=== PATIENT | female | born 1980 | race Caucasian/White ===

== ENCOUNTER 2024-06-14 22:14 | Day surgery (SDC) | payer OTHER, SELFPAY ==
[2024-06-14 17:50] VITALS: BP 146/83
[2024-06-14 18:15] LABS: % Basophils 0.3 % (0-2); % Eosinophils 1.2 % (0-6); % Immature Granulocytes 0.2 % (0-0.5); % Lymphocytes 19.6 % (20.5-51.1); % Monocytes 5.3 % (1.7-9.3); % Neutrophils 73.4 % (42.2-75.2); Absolute Eosinophils 0.1 10^3/uL (0-0.7); Absolute Lymphocytes 2.4 10^3/uL (1.2-3.4); Absolute Monocytes 0.6 10^3/uL (0.1-0.6); Absolute Neutrophils 8.8 10^3/uL (1.4-6.5); Hematocrit 36.7 % (37.0-47.0); Hemoglobin 12.8 g/dL (12.0-16.0); Mean Corp Hgb Conc. 34.9 g/dL (33.0-37.0); Mean Corpuscular Hgb 31.2 pg (27.0-31.0); Mean Corpuscular Volume 89.5 fL (81.0-99.0); Mean Platelet Volume 9.5 fL (7.4-10.4); Nucleated Red Blood Cells % 0 %; Platelet Count 372 10^3/uL (130-400); Red Cell Dist. Width 13.2 % (11.5-14.5)
[2024-06-14 18:19] LABS: Urine Albumin Negative (Neg - Trace); Urine Bilirubin Negative (Negative); Urine Character Clear (Clear); Urine Color Yellow; Urine Glucose Negative (Negative); Urine Ketone Negative (Negative); Urine Leukocyte Trace (Negative); Urine Nitrite Negative (Negative); Urine Occult Blood Trace (Negative); Urine Specific Gravity 1.025 (<1.030); Urine Urobilinogen Negative (Neg - 1+)
[2024-06-14 18:32] LABS: Urine Squamous Cell >30 /LPF (Few)
[2024-06-14 18:33] LABS: Urine Bacteria Few (Negative); Urine Red Blood Cell 0-2 /HPF (0-2); Urine White Cell 0-2 /HPF (0-5)
[2024-06-14 18:37] LABS: ALT (SGPT) 24 U/L (0-35); AST (SGOT) 29 U/L (14-36); Albumin 4.4 g/dl (3.5-5.0); Alkaline Phosphatase 71 U/L (38-126); Blood Urea Nitrogen 12 mg/dl (7-17); Calcium 8.9 mg/dl (8.4-10.2); Carbon Dioxide 20 mmol/L (22-30); Chloride 102 mmol/L (98-107); Glucose 96 mg/dl (70-99); Potassium 4.1 mmol/L (3.5-5.1); Sodium 138 mmol/L (135-145); Total Bilirubin 0.4 mg/dl (0.2-1.3); Total Protein 7.4 g/dl (6.3-8.2); eGFR > 60.00
[2024-06-14 18:38] LABS: Lipase 79 U/L (23-300)
--- NOTE | 2024-06-14 18:52 | ED.GENMED ---
History of Present Illness
General
Chief Complaint: Abdominal Pain
Source: patient
Exam Limitations: none
Time Seen by Provider: 06/14/24 18:43
History of Present Illness
History of Present Illness:
This is a 44 year old female that comes in with c/o RLQ pain. States that she started with pain around lunch time. States that the pain seems to travel up to under her ribs on the right side. States that she eat lunch but did not feel any better.
Then at 2pm she drank a sprite thinking that if she belched this would help. States that she felt no better. States that when she got home she also took a baby aspirin. States that she is nauseated and did vomit. Denies any fever, chills, chest
pain, SOB, diarrhea, headache, dizziness, urinary burning.
Past History
Past History
ED Past Medical History: None; Negative Asthma, HTN, Hypercholesterolemia or NIDDM
ED Past Surgical History: (X 1)
Social History
Tobacco: Non-smoker
Alcohol: Occasional
Personal:
Living: with family
Employment: Employed
Review of Systems
Review of Systems
All Other Systems: ROS reviewed and negative except as documented in HPI and ROS
Constitutional: Reports no symptoms; Denies fever or chills
EENT: Reports no symptoms
Respiratory: Reports no symptoms; Denies cough or trouble breathing
Cardiac: Reports no symptoms; Denies chest pain
ABD/GI: Reports abdominal pain (RLQ), nausea and vomiting; Denies diarrhea
: Reports no symptoms; Denies dysuria, frequency or urgency
Musculoskeletal: Reports no symptoms
Skin: Reports no symptoms
Neurological: Reports no symptoms; Denies dizzy or headache
Psychiatric: Reports no symptoms
Phy Exam
General Physical Exam
General Presentation: mild distress
General age: appears stated age
General Skin: warm and dry
General Habitus: normal
General Mental: alert
General Hydration: appears well hydrated
ENT Exam
ENT Exam: TM's normal, pharynx normal and neck supple
Eye Exam
Eye Exam: EOMI
Cardiovascular Exam
Cardiovascular Exam: regular rate/rhythm, no edema, no murmur and normal peripheral pulses
Pulmonary Exam
Pulmonary Exam: lungs clear, no respiratory distress, no rales, chest non tender, no crackles, no rhonchi, no wheezing and no cough
Gastrointestinal Exam
Gastrointestinal Exam: soft, no organomegaly, no pulsatile mass, non distended, tender (RLQ tenderness with palpation) and other (Hypoactive bowel sounds)
Musculoskeletal Exam
Musculoskeletal Exam: full ROM and no edema
Skin Exam
Skin Exam: normal color, warm/dry, no rash and no petechia
Psychiatric Exam
Psychiatric Exam: normal mood/affect
Course
Orders/Labs/Results
Orders:
Orders
06/14/24 18:03
CMP [Comprehensive Metabolic Panel] Urgent
Complete Blood Count/With Diff Urgent
HCG, Serum Qualitative Screen Urgent
Comment: ADD ON
Lipase Urgent
06/14/24 18:06
Urinalysis Reflex To Culture Urgent
Date Specimen was Collected: 06/14/24
Time Specimen was Collected: 17:56
Urine Microscopic Reflex Cult Urgent
06/14/24 18:50
Add On- LAB Urgent
Tests Added?: HCG
Pelvis (Non Obstetric) US [US Pelvis Only (non-obstetric)] Urgent
Comment:
Reason For Exam: Right lower abd pain,
06/14/24 18:51
0.9% Sodium Chloride 1000 ml [Nss] 1,000 ml IV BOLUS
06/14/24 18:52
Ketorolac [Toradol] 30 mg IV NOW STA
06/14/24 18:54
CT Abd/pelvis W Iv Cont Urgent
Comment:
Reason For Exam: RLQ pain
Abnormal Lab Results
06/14/2406/14/24
18:03 18:06
WBC 12.0 H 10^3/uL
(4.8-10.8)
RBC 4.10 L 10^6/uL
(4.20-5.40)
Hct 36.7 L %
(37.0-47.0)
MCH 31.2 H pg
(27.0-31.0)
Absolute Neuts (auto) 8.8 H 10^3/uL
(1.4-6.5)
Lymphocytes % 19.6 L %
(20.5-51.1)
Carbon Dioxide 20 L mmol/L
(22-30)
Ur Occult Blood Reflex Trace A
(Negative)
Leukocyte Esterase Rfl Trace A
(Negative)
Urine Bacteria (Reflex) Few A
(Negative)
06/14/24 18:03
06/14/24 18:03
Leukocytosis, carbon dioxide slightly low,. Urine negative for infection. Lipase normal at 79 , HCG negative
Vital Signs
Initial and Last Documented VS:
Initial Vital Signs
Temp Pulse Resp BP Pulse Ox
98.2 F 67 18 146/83 100
06/14/24 17:50 06/14/24 17:50 06/14/24 17:50 06/14/24 17:50 06/14/24 17:50
Last Documented Vital Signs
Temp Pulse Resp BP Pulse Ox
98.2 F 67 18 116/63 100
06/14/24 17:50 06/14/24 17:50 06/14/24 17:50 06/14/24 20:00 06/14/24 20:15
MDM/Problems Addressed
Differential Diagnosis Includes:
Ovarian cyst, Appendicitis,
MDM/Problems Addressed:
This is a 44 year old female that comes in with c/o right lower abd pain. States that she has not had pain this bad since she was in labor. States that around noon she started with RLQ pain that is constant.
Will check labs, US and get CT scan.
Back into see patient. Explained that she has an acute appendicitis. Will admit to Dr. Dias service and start antibiotics.
Chronic conditions affecting care:
NA
Acute Exacerbation and/or Progression of Chronic Illness:
NA
*Pulse Oximetry
Patient hypoxic: no
*EKG
Interpreted by ED Provider?: NA
Rate: EKG- N/A
*Retail Cashier Associate Interpretation
Rate: Retail Cashier Associate- N/A
*Critical Care Note
Total Time (30-74mins, 75-104mins- exclusive of procedures): Not Applicable
ED Attending Note
-
Portions of this chart may have been created with voice recognition software.� Occasional wrong word or��sound alike� substitutions may have occurred due to the inherent limitations of voice recognition software.
Discharge Plan
Departure
Patient Disposition: Admit
Date of Disposition: 06/14/24
Time of Disposition: 21:10
Admit to: Med/Surg
Presentation/result/management discussed w/ accepting MD/DO: Dr. Dias
Patient with high blood pressure during this ER visit?: No
Condition: Good
Covid-19: Not Applicable
Discharge Problem:
Acute appendicitis
Prescriptions:
No Action
VIT NO.73/IRON/FA
1 tab PO DAILY
ibuprofen 600 MG tablet
600 mg PO Q4HPRN PRN (Reason: moderate pain/cramps) Qty: 30 0RF
Referrals:
Kilo Balderas CRNP [Family Provider] -
Interventions
Interventions:
*Risk Screen - Suicide Last Done: 06/14/24 17:55
*General Assessment Last Done: 06/14/24 20:30
*Neglect/Abuse Screening Last Done: 06/14/24 17:55
*ED COVID-19 Vaccine History Last Done: 06/14/24 20:27
BG-Vvhkch-Tbeswpkwin Assessment Last Done: 06/14/24 19:24
Discharge Date and Time
Print Language: CA[place] ISLAND[place]
[2024-06-14 18:53] VITALS: BMI 27.5
[2024-06-14] MEDS: TORADOL 30 MG IV (19:16)
[2024-06-14] MEDS: NSS 1000 IV (19:16)
[2024-06-14 19:22] VITALS: BP 120/85
[2024-06-14 19:32] LABS: HCG, Serum Qualitative Screen Negative
[2024-06-14 20:00] VITALS: BP 116/63
[2024-06-14 21:00] VITALS: BP 122/75
[2024-06-14] MEDS: ZOSYN 50 IV (21:13)
--- NOTE | 2024-06-14 21:50 | HPS.HSE ---
Addendum entered and electronically signed by Juan Hernández MD 06/15/24 09:45:
Patient seen and examined.
Patient is a 44 yo F with a PMH of s/p who presents with 24 hours of RLQ abdominal pain. She states that her pain began yesterday at approximately 1 PM. Upon further prompting she does report some mild back discomfort over the preceding
days. Associated intermittent subjective fevers and chills. Associated nausea and vomiting. No fluctuations in GI function. No urinary symptoms. No prior episodes of similar pain. She has previously used a Cologuard within the last year or 2
which was normal. No chronic GI issues. No strong family history of GI malignancies or IBD.
Gen: NAD
Abd: soft, tender over RLQ/flank, ND, non-peritoneal
Labs and CT scan imaging reviewed.
Patient is a 44 yo F p/w acute appendicitis
The natural history and pathophysiology of appendicitis was reviewed. CT scan imaging as a relates to her appendix was reviewed. Options for management including medical management with antibiotics versus surgical management with appendectomy were
considered and discussed. The pros and cons of both approaches was discussed. Specifically, we discussed failure of medical management and future episodes of appendicitis versus surgical risks. We also discussed that given the presence of
appendicoliths she is at high risk for failure of medical management.
Plan for a laparoscopic appendectomy. The procedure itself, as well as the risks, benefits, and alternatives was discussed. Specifically, we discussed the risks of bleeding, infection, injury to surrounding structures (bowel, bladder), staple line
leak, and need for open operation. Typical post procedure recovery was discussed. All questions answered. Consent signed.
-- Laparoscopic appendectomy
-- NPO, IVF
-- Antibiotics: Zosyn
--Pain control: Tylenol and IV Dilaudid as needed
Original Note:
Family Physician
-
Family Physician: IKER Cornelius
Chief Complaint
-
'Abdominal pain'
History of Present Illness
44 y/o Patient, presents to ER with the c/o RLQ abdominal pain. Reports 'consistent Cramp like pain' at RLQ started at 1PM. She thought she may be hungry and tolerated her lunch. one hour later, she felt as if she needed to belch and had sprite,
which made her nauseous. She stated she had one episode of small amount of emesis at the triage area, no blood noted. LBM 06/14. Patient is without any pain, nausea at present, after the pain medicine. Denies any chest pain, shortness of breath at
present. Hx of x1
Medical History
Past Medical History
Past Medical History: Reports None
Past Surgical History: Reports
Social History
Tobacco: Non-smoker
Alcohol: None
Drug: None
Personal:
Living: With Family
Family History
Family History: Not pertinent
Allergies / Home Medications
Allergies reflects when Allergies were last updated in [facility].
Home Medications with original date entered in [facility]
Allergy/Medication List:
Allergies
Allergy/AdvReac Type Severity Reaction Status Date / Time
No Known Allergies Allergy Unverified 03/02/10 12:16
Home Medications
aspirin 81 mg chewable tablet 81 mg PO DAILYPRN PRN mild pain 06/14/24
norethindrone acetate 1.5 mg-ethinyl estradiol 30 mcg tablet (Vivien) 1 tab PO HS 06/14/24
therapeutic multivitamin 1 tab PO DAILY 06/14/24
Review of Systems
-
History Source: Patient
A 12 point ROS was completed and negative except as noted: Yes
Constitutional: Reports No Symptoms
EENT: Reports No Symptoms
Respiratory: Reports No Symptoms
Cardiac: Reports No Symptoms
Abdomen/GI: Reports Abdominal Pain, Nausea and Vomiting
: Reports No Symptoms
Musculoskeletal: Reports No Symptoms
Skin: Reports No Symptoms
Neurological: Reports No Symptoms
Endocrine: Reports No Symptoms
Hematologic/Lymphatic: Reports No Symptoms
Psych: Reports No Symptoms
Physical Exam
Vital Signs
Vital Signs
Temp Pulse Resp BP Pulse Ox
98.2 F 67 18 122/75 99
06/14/24 17:50 06/14/24 17:50 06/14/24 17:50 06/14/24 21:00 06/14/24 21:15
Physical Exam
General: Well Developed, Well Nourished and No Apparent Distress
HEENT: NormoCephalic, Moist mucous membranes and Atraumatic
Respiratory: Clear and Non Labored Respirations
Cardiac: S1/S2 and Regular Rhythm
Breast: Deferred by me
GI: Soft, Non Distended, Normal Bowel Sounds and Tender (RLQ with palpation); No Organomegaly
Rectal: Deferred by Provider
Genito-urinary: Deferred by me
Musculoskeletal: No Clubbing, No Cyanosis and No Edema
Skin: Warm and Dry
Neuro: Awake and Nonfocal/grossly intact
Hematologic/Lymphatic: No Lymphadenopathy
Psych: Calm and Intact Judgment/Insight
Laboratory Results
-
06/14/24 18:03
06/14/24 18:03
Laboratory Results
Total Bilirubin 0.4 mg/dl (0.2-1.3) 06/14/24 18:03
AST 29 U/L (14-36) 06/14/24 18:03
ALT 24 U/L (0-35) 06/14/24 18:03
Alkaline Phosphatase 71 U/L (38-126) 06/14/24 18:03
Lipase 79 U/L (23-300) 06/14/24 18:03
Data Reviewed
-
CT Scan: Report Reviewed by me
Lab Data: Labs Reviewed by me
Impression/Plan
-
44 y/o patient with RLQ abdominal pain
# Abdominal pain likely due to Acute Appendicitis
-CT Abd/pelvis There is acute appendicitis.
The unopacified appendix is best visualized on image 41 series 201, coronal image 28 and sagittal image 23
The appendix is enlarged measuring 11 mm in diameter with multiple small appendicoliths.
There is no perforation or abscess
-WBC 12.0
-Continue IV antibiotics
-Continue IV Analgesics
-Continue IV Antiemetics
-NPO
-Admit to Dr. Lehman
-labs in AM.
DVT prophylaxis: SCD's
Full Code
[2024-06-14 23:00] VITALS: BP 117/70
[2024-06-14 23:41] VITALS: BMI 27.9
--- NOTE | 2024-06-14 23:50 | PTCARENOTE ---
Pt arrived via 2S via ED stretcher at 2230. Pt was able to ambulate to bed. VSS. no complaints of pain. head to toe assessment complete. Oriented to room and call curtis. bed in lowest position and locked.
[2024-06-15] VITALS (8 sets, daily range): BP systolic 88–112; BP diastolic 54–66
[2024-06-15] MEDS: TORADOL 10 MG IV (01:00)
[2024-06-15] MEDS: ZOFRAN 4 MG IV (03:18)
[2024-06-15] MEDS: ZOSYN 50 IV ×3 (03:18→16:15)
[2024-06-15] MEDS: DILAUDID 0.25 MG IV ×2 (04:02→06:24)
[2024-06-15] MEDS: COMPAZINE 5 MG IV (06:01)
[2024-06-15 06:27] LABS: Hematocrit 35.7 % (37.0-47.0); Hemoglobin 12.4 g/dL (12.0-16.0); Mean Corp Hgb Conc. 34.7 g/dL (33.0-37.0); Mean Corpuscular Hgb 32.1 pg (27.0-31.0); Mean Corpuscular Volume 92.5 fL (81.0-99.0); Mean Platelet Volume 10.3 fL (7.4-10.4); Platelet Count 316 10^3/uL (130-400); Red Blood Cell Count 3.86 10^6/uL (4.20-5.40); Red Cell Dist. Width 13.2 % (11.5-14.5); White Blood Cell Count 17.5 10^3/uL (4.8-10.8)
[2024-06-15 06:47] LABS: Blood Urea Nitrogen 8 mg/dl (7-17); Calcium 8.3 mg/dl (8.4-10.2); Carbon Dioxide 17 mmol/L (22-30); Chloride 103 mmol/L (98-107); Estimated Creatinine Clearance 115 ml/min; Glucose 94 mg/dl (70-99); Potassium 3.7 mmol/L (3.5-5.1); Sodium 137 mmol/L (135-145); eGFR > 60.00
--- NOTE | 2024-06-15 09:46 | W.SUR.PREOP ---
Pre-Operative Surgical Note
-
I have examined this patient prior to the performance of the scheduled procedure.
The patient's condition is unchanged from the time of the current History and
Physical and the patient is able to undergo the scheduled procedure.
--- NOTE | 2024-06-15 12:37 | W.IMMPOSTOP ---
Addendum entered and electronically signed by Juan Hernández MD 06/15/24 12:51:
[facility]#[id number]
Original Note:
Surgical Immed Post Op Note
-
Primary Surgeon: eBtty
Assisting Surgeon: None
Pre-op Diagnosis: Acute appendictis
Post-op Diagnosis: Acute appendicitis
Procedure Performed: Laparoscopic appendectomy
Anesthesia Type: General
Specimen / Cultures:
1. Appendix
Estimated Blood Loss: 3 cc
Complications: None
Operative Findings:
1. Acutely inflamed and dilated appendix, elongated (14 cm), no evidence of perforation, turbid fluid within RLQ and pelvis
2. Base taken with stapler, mesentery with [employer]
Plan:
-- Abx 4 days post-op
-- DC today versus tomorrow pending recovery
--- NOTE | 2024-06-15 13:55 | PTCARENOTE ---
Pt received from the PACU via bed. Transport was w/o incident. Pt is AAOx3, HRR, lungs are clear, resp. easy. Pt denies pain or nausea at this time. Pt's abd with 4 lap sites well approximated with surgi glue, no drainage noted. Pt's VSS, pt is
afebrile. Pt instructed on Plan of care. Pt verbalized understanding of instructions. Call curtis is within reach.
[2024-06-15] MEDS: NORMOSOL-R/PLASMALYTE-A 1000 IV (14:10)
--- NOTE | 2024-06-15 15:53 | CM ---
Met with patient and spouse at the bedside; initial assessment completed
Pharmacy verified: [facility] @ [address] [facility]
Patient lives in a 3 story home with spouse and 3 children ages 14,11, an 7; no steps to enter; 14-15 steps between floors; railings present; powder room 1st floor; 2nd floor master bath has stall shower
PLOF: independent with ambulation, stairs, and ADLs; drives; works time broker
DME: none
No SNF history
will transport home
Plan: discharge to home when medically stable; no needs anticipated
== END 2024-06-15 18:08 | disposition home or self-care (01) ==
LOC: SDS 22:14
PROVIDERS: Nurse Practitioner Gerontology; Surgery; ATTENDING PHYSICIAN Surgery; EMERGENCY PHYSICIAN Emergency Medicine; FAMILY PHYSICIAN Nurse Practitioner Family
PROC: 0DTJ4ZZ Resection of Appendix, Percutaneous Endoscopic Approach (ICD-10-PCS; 2024-06-15)
DX: K35.80 Unspecified acute appendicitis (principal); Z98.891 History of uterine scar from previous surgery; Z79.82 Long term (current) use of aspirin
CPT/HCPCS: 44970; 88304; 74177; 80048; 80053; 81003; 81015; 83690; 84703; 85025; 85027; 96361; 96365; 96375; 99285; C1776; Q9967

== ENCOUNTER → 2024-10-20 08:51 | Outpatient (REF) | payer OTHER, SELFPAY | LOC: HWWDC 08:51 | PROVIDERS: ATTENDING PHYSICIAN Nurse Practitioner Family; FAMILY PHYSICIAN Nurse Practitioner Family | DX: Z12.31 Encounter for screening mammogram for malignant neoplasm of breast (principal) | CPT/HCPCS: 77063; 77067 ==